=== PATIENT | male | born 1995 | race Two or more races ===

== ENCOUNTER 2020-07-09 10:31 | Emergency (ER) | payer SELFPAY ==
[2020-07-09] MEDS ORDERED: Fluorescein 1 MG Ophth Strip EYELF ONE (11:36)
--- NOTE | 2020-07-09 11:48 | EDM.PDOC ---
ED HPI GENERAL MEDICAL PROBLEM - General Chief Complaint: Eye Problems Stated Complaint: L EYE SWOLLEN Time Seen by Provider: 07/09/20 11:36 Source of Information: Reports: Patient, RN Notes Reviewed History Limitations: Reports: No Limitations - History of Present Illness INITIAL COMMENTS - FREE TEXT/NARRATIVE: Patient is a 24-year-old male who presents to the ED for the evaluation of a swollen and painful left eye. Patient notes that this started on Sunday with some irritation, but he notes that the eyelid seem to get more swollen on Sunday along with photosensitivity, and pain. He works at a [employer] business, but states he always wears his eyeglasses. He does not remember getting anything in his eye. He does not recount any trauma to the eye or the area around the eye. He is not been using anything for pain. There is some eyelid edema, and redness to the sclera, but no visible foreign body appreciated. Further denies any fevers, nausea/vomiting/diarrhea, he is not had any changes in vision. He notes that his vision was normal prior to this, and has not appreciated any change. He further denies any allergies. - Related Data Allergies Allergy/AdvReac Type Severity Reaction Status Date / Time No Known Allergies Allergy Verified 07/09/20 11:04 Home Meds: Home Meds Ketorolac [Acular 0.5% Ophth Soln] 1 drop OP Q6H PRN #1 bottle 07/09/20 [Rx] Past Medical History - Past Health History Medical/Surgical History: Denies Medical/Surgical History Social & Family History - Tobacco Use Smoking Status *Q: Current Some Day Smoker Years of Tobacco use: 5 Packs/Tins Daily: 0.3 ED ROS GENERAL - Review of Systems Review Of Systems: Comprehensive ROS is negative, except as noted in HPI. ED EXAM GENERAL W FULL EYE - Physical Exam Exam: See Below Exam Limited By: No Limitations General Appearance: Alert, WD/WN, No Apparent Distress Eye Exam: Right Eye: Normal Inspection, Left Eye: Conjunctival Injection, Periorbital Changes (bilateral eyelid edema), Bilateral Eye: EOMI, PERRL Eyelids: Right: Normal Appearance, Left: Edema, Lid Everted for Exam, Other (pt has not had any purulent drainage from eye) Conjunctiva & Sclera: Right: Normal Appearance, Left: Injected Cornea Exam: Right: Normal Appearance, Left: Corneal Abrasion (small area noted to left upper quadrant), Examined with Flourescein Extraocular Movements: Bilateral: Intact Pupils: Normal Accommodation Pupillary Size: Bilateral: 3 mm Pupillary Reaction: Bilateral: Brisk Ears: Normal External Exam Nose: Normal Inspection Throat/Mouth: Normal Inspection, Normal Lips, Normal Teeth, Normal Gums, Normal Oropharynx, Normal Voice, No Airway Compromise Head: Atraumatic, Normocephalic Neck: Normal Inspection Respiratory/Chest: No Respiratory Distress, Lungs Clear, Normal Breath Sounds, No Accessory Muscle Use, Chest Non-Tender Cardiovascular: Normal Peripheral Pulses, Regular Rate, Rhythm, No Murmur Extremities: Normal Inspection, Normal Capillary Refill Neurological: Alert, Oriented, CN II-XII Intact (grossly), Normal Cognition, No Motor/Sensory Deficits Psychiatric: Normal Affect, Normal Mood Skin Exam: Warm, Dry, Intact, Normal Color, No Rash Course - Vital Signs Last Recorded V/S: Last Vital Signs Temp 98.3 F 07/09/20 11:00 Pulse 75 07/09/20 11:00 Resp 16 07/09/20 11:00 BP 123/77 07/09/20 11:00 Pulse Ox 100 07/09/20 11:00 - Orders/Labs/Meds Meds: Medications Discontinued Medications Generic Name Dose Route Start Last Admin Trade Name Tara PRN Reason Stop Dose Admin Erythromycin 1 gm 07/09/20 12:40 Erythromycin 0.5% Ophth Oint EYELF 07/09/20 12:41 ONETIME ONE Fluorescein Sodium 1 mg 07/09/20 11:36 Ful-Mandie EYELF 07/09/20 11:37 ONETIME ONE - Re-Assessments/Exams Free Text/Narrative Re-Assessment/Exam: 07/09/20 11:48 Patient presents to the ED for his left eye issue. The eye will be examined with fluorescein and for corneal abrasion. Departure - Departure Time of Disposition: 12:42 Disposition: Home, Self-Care 01 Condition: Good Clinical Impression: Conjunctivitis Qualifiers: Conjunctivitis type: blepharoconjunctivitis Blepharoconjunctivitis type: unspecified Laterality: left Qualified Code(s): H10.502 - Unspecified blepharoconjunctivitis, left eye - Discharge Information *PRESCRIPTION DRUG MONITORING PROGRAM REVIEWED*: No *COPY OF PRESCRIPTION DRUG MONITORING REPORT IN PATIENT KELLY: No Prescriptions: Ketorolac [Acular 0.5% Ophth Soln] 1 drop OP Q6H PRN #1 bottle PRN Reason: Pain Instructions: How to Use Eye Drops and Eye Ointments Referrals: PCP,None [Primary Care Provider] - Forms: ED Department Discharge Additional Instructions: You have been evaluated in the ED today for your red/irritated left eye. You were identified to have a conjunctivitis to the left eye. You were given some pain drops for your eye, ketorolac, please instill 2 drops to the affected eye every 6 hours at least for the next 24 hours . You may use this up to 2-3 days if needed. Please use the erythromycin ointment, 1 cm ribbon to the lower affected eyelid margin 4 times daily for the next 3-5 days. Recommend that you follow up with optometry JACQUIE for a more thorough evaluation and to make sure that everything is healing appropriately. You will have to call around and schedule yourself an appointment with the next available provider if you do not already have a current eye doctor. Please return to the ED if your symptoms should change or worsen. Sepsis Event Note (ED) - Evaluation Sepsis Screening Result: No Definite Risk - Focused Exam Vital Signs: Vital Signs Temp Pulse Resp BP Pulse Ox 07/09/20 11:00 98.3 F 75 16 123/77 100
[2020-07-09] MEDS ORDERED: Erythromycin Base 0.5% Ophth Oint 1 GM Tube EYELF ONE (12:40)
== END 2020-07-09 12:49 | disposition home or self-care (01) ==
LOC: JD.ED 10:31
DX: S05.02XA Injury of conjunctiva and corneal abrasion without foreign body, left eye, initial encounter (principal); H10.502 Unspecified blepharoconjunctivitis, left eye; F17.210 Nicotine dependence, cigarettes, uncomplicated; X58.XXXA Exposure to other specified factors, initial encounter
CPT/HCPCS: 99283; A9270; 99282